=== PATIENT | male | born 1960 | race Hispanic/Latino ===

== ENCOUNTER 2018-03-02 20:23 | Observation (INO) | payer SELFPAY ==
[~2018-03-02] VITALS: Ht 175.3 cm; Wt 56.0 kg
--- NOTE | 2018-03-02 20:40 | NUR ---
PT. TO ROOM 6 WITH BEING RIBBER ON THE SIDE OF THE ROAD BY EMS. PT. IS LUX[place]ISH SPEAKING ONLY. UNABLE TO OBTAIN BIRTHDATE OR ADRESS FOR PT. PT. IS UNKEPT.
--- NOTE | 2018-03-02 20:45 | NUR ---
STAFF CANNOT VERIFY ANY INFORMATION FROM PT. PT UNABLE TO GIVE BIRTHDATE, WHERE HE LIVES, WHAT IS PAST MEDICAL HX IS, HE SAYS HE DOESNT KNOW WHERE HE IS AT AT THIS TIME. LANGUAGE BARRIER APPEARS TO BE PART OF PROBLEM, BUT WITH AN DUMB WAITER OPERATOR WAS ABLE TO ASCERTAIN, PT HAS ALTERED MENTAL STATUS, UNKNOWN IF THAT IS NORMAL STATE OR SOMETHING NEW.
[2018-03-02 21:28] LABS: HEMATOCRIT 39.5 % (39.0-50.0); HEMOGLOBIN 13.3 g/dl (14.0-18.0); IMMATURE GRANULOCYTES 0.9 % (0.0-5.0); MEAN CELL VOLUME 94.5 fL CALC (80.0-100.0); MEAN CORPUSCULAR HGB 31.8 pG CALC (26.0-32.0); MEAN CORPUSCULAR HGB CONC 33.7 g/L CALC (32.0-36.0); NEUT# 7.5 thou/uL (1.82-7.42); RED BLOOD COUNT 4.18 mill/uL (4.70-6.10); RED CELL DISTRI WIDTH 14.2 % (11.5-15.5)
[2018-03-02 21:29] LABS: URINE BILIRUBIN - DIPSTICK NEGATIVE (NEGATIVE); URINE BLOOD DIPSTICK NEGATIVE (NEGATIVE); URINE COLOR YELLOW; URINE GLUCOSE - DIPSTICK NEGATIVE (NEGATIVE); URINE KETONE NEGATIVE (NEGATIVE); URINE LEUK ESTERASE NEGATIVE (NEGATIVE); URINE NITRITE - DIPSTICK NEGATIVE (Negative); URINE PROTEIN - DIPSTICK TRACE mg/dL (NEG-TRACE); URINE UROBILINOGEN - DIPSTICK 0.2 E.U./dL (0.2)
[2018-03-02 21:30] LABS: URINE CLARITY CLEAR
[2018-03-02 21:33] LABS: BARBITURATES NEGATIVE (NEGATIVE); COCAINE NEGATIVE (NEGATIVE); METHADONE NEGATIVE (NEGATIVE); OXCYCODONE NEGATIVE (NEGATIVE); TETRAHYDROCANNABIONOL NEGATIVE (NEGATIVE); TRICYLIC ANTIDEPRESSANTS NEGATIVE (NEGATIVE)
--- NOTE | 2018-03-02 21:35 | NUR ---
REGISTRATION FOUND ANOTHER ACCOUNT FROM OCTOBER OF THIS YEAR THAT COULD BE THIS PT, BUT PT UNABLE TO VERIFY BIRTHDAY SO UNABLE TO COMBINE ACCTS. AT THAT TIME THAT PT WAS ADMITTED AND WE HAVE DR. DOWNING NOTES THAT PT IS HOMELESS , BUT ONCE AGAIN UNABLE TO VERIFY THAT THIS PT IS THE SAME ONE.
[2018-03-02 21:40] LABS: ALBUMIN 4.6 g/dL (3.2-5.0); ALKALINE PHOSPHATASE 122 u/l (38-126); ANION GAP 28 (6-22 (CALC)); BILIRUBIN, TOTAL 0.6 mg/dL (0.0-1.4); BUN 15 mg/dL (9-20); BUN/CREATININE RATIO 13 (12-20 (CALC)); CARBON DIOXIDE 16 mmol/l (22-30); CHLORIDE 100 mmol/l (95-108); CREATININE 1.2 mg/dL (0.7-1.3); GFR > 60 ML/MIN (>=60 (CALC)); GFR FOR AFR.AMER. > 60 ML/MIN (>=60 (CALC)); POTASSIUM 3.8 mmol/l (3.5-5.1); SGOT/AST 22 u/l (17-59); SODIUM 141 mmol/l (137-146); TOTAL PROTEIN 7.8 g/dL (6.3-8.2)
[2018-03-02 21:45] LABS: PROTHROMBIN TIME 10.7 SECONDS (9.0-12.5)
--- NOTE | 2018-03-02 21:45 | NUR ---
TOOK PICTURE OF PT, AND PLACED ABOVE BED, WILL SCAN INTO HIS MEDICAL HISTORY PER INTERVENTION SPECIALIST
--- NOTE | 2018-03-02 21:50 | NUR ---
PT. RESTING ON STRETCHER. PT. VOIDED ON FLOOR. HOUSEKEEPING IN TO MOP FLOOR, NO ACUTE DISTRESS NOTED.
[2018-03-02 21:54] LABS: MYOGLOBIN 540 ng/mL (0 - 121)
--- NOTE | 2018-03-02 22:27 | NUR ---
PT. VOIDED ON FLOOR AGAIN, URINAL AT PT. SIDE.
--- NOTE | 2018-03-02 23:28 | NUR ---
IVF STARTED PER MD ORDER.
[2018-03-03] VITALS (7 sets, daily range): BP systolic 102–150; BP diastolic 71–81
--- NOTE | 2018-03-03 01:18 | NUR ---
Admission Note Report Given to: STANLEY ARTHUR Transported by: Wheelchair X Stretcher Transported with: X Nurse Transporter X Patent IV O2 X Contact Lens Blocker
--- NOTE | 2018-03-03 01:45 | NUR ---
PT. TAKEN TO MS VIA STRETCHER. NO C/O.
--- NOTE | 2018-03-03 02:00 | NUR ---
PT ARRIVED TO UNIT VIA STRETCHER WITH ER STAFF. AMBULATED WITH WALKER TO SHOWER AND PT ASSISTED WITH FULL SHOWER AND ORAL HYGEINE. TELE REPLACED AND PT AMBULATED TO BED. EMS SITE APPEARS HEALTHY TO LEFT HAND. PT IS KITTITIAN SPEAKING ONLY AND IS ALERT WITH CONFUSION. MEGHA RYAN ASSISTED WITH TRANSLATION; PT IS ALERT TO NAME ONLY AND UNABLE TO STATE , PLACE, OR TIME. DENIES PAIN. RESPIRATIONS EVEN AND UNLABORED ON ROOM AIR; LUNGS ARE CLEAR. ASSESSMENT COMPLETED. ABLE TO MAKE NEEDS KNOWN, SAT ON EDGE OF BED TO EAT A LARGE SNACK AND REQUESTING PANTS. ORIENTED TO ROOM AND CALL LIGHT SYSTEM. SAFETY MEASURES IN PLACE INCLUDING BED ALARM. SAFETY MEASURES IN PLACE. CALL LIGHT WITHIN REACH.
--- NOTE | 2018-03-03 03:35 | NUR ---
ROCEPHIN INFUSING AT THIS TIME AND THIRD FLUIDS BOLUS INFUSING. PT RESTING WITH EYES CLOSED. NO REQUESTS AT THIS TIME.
--- NOTE | 2018-03-03 08:05 | NUR ---
ASSESSMENT DONE. TELE IN PLACE. RESPS EVEN AND UNLABORED. NS 125ML/HR INFUSING WELL. PT IS A&O X1 TO PERSON AND AGE ONLY. PT DENIES PAIN AT THIS TIME. SAFETY PRECAUTIONS REINFORCED AND CALL LIGHT IN REACH. BED ALRAM IN PLACE FOR SAFETY.
--- NOTE | 2018-03-03 12:00 | NUR ---
PT IS SITTING IN THE SIDE OF THE BED EATING HIS LUNCH WITH NO S/S OF DISTRESS NOTED. PT DENIES NEEDS AT THIS TIME. BED ALARM IN PLACE.
--- NOTE | 2018-03-03 16:00 | NUR ---
PT IS RESTING IN BED WITH NO S/S OF DISTRESS NOTED. PT DENEIS NEEDS AT THIS TIME. CALL LIGHT IN REACH. BED ALARM IN PLACE.
--- NOTE | 2018-03-03 19:00 | NUR ---
BEDSIDE REPORT RECEIVED FROM MEGHA FARIAS. PT RESTING IN BED SEMI FOWLERS; ALERT WITH CONFUSION; ICELANDIC SPEAKING ONLY. DENIES PAIN CURRENTLY. RESPIRATIONS EVEN AND UNLABORED ON ROOM AIR. IV FLUIDS INFUSING WITHOUT DIFFICULTY; IV SITE APPEARS HEALTHY. TELE ON. SAFETY MEASURES IN PLACE INCLUDING BED ALARM. CALL LIGHT WITHIN REACH.
--- NOTE | 2018-03-04 00:07 | NUR ---
PT RESTING IN BED QUIETLY WITH EYES OPEN. NEURO CHECK WNL. PT AMBULATES WITH WALKER. NO REQUESTS OR CONCERNS AT THIS TIME. SAFETY MEASURES IN PLACE INCLUDING BED ALARM. CALL LIGHT WITHIN REACH.
[2018-03-04 04:00] VITALS: BP 138/80
--- NOTE | 2018-03-04 04:31 | NUR ---
PT RESTING IN BED WITH EYES CLOSED. NURSING SPECIALIST FREQUENTLY REPORTING THAT PT IS OFF TELE. ELECTRODES, LEADS, AND MONITOR BOX ALL REPLACED AND STILL WITH DIFFICULTY READING. ELECTRODES ARE INTACT. VS STABLE. PT VOIDING CLEAR YELLOW URINE IN BEDSIDE URINAL IN SMALL FREQUENT AMOUNTS. NO ACUTE CHANGES IN CONDITION THROUGHOUT THE NIGHT. REMAINS ONLY ORIENTED TO SELF. SAFETY MEASURES IN PLACE. CALL LIGHT WITHIN REACH.
[2018-03-04 05:27] LABS: IMMATURE GRANULOCYTES 0.3 % (0.0-5.0); MEAN CELL VOLUME 93.3 fL CALC (80.0-100.0); MEAN CORPUSCULAR HGB 32.2 pG CALC (26.0-32.0); MEAN CORPUSCULAR HGB CONC 34.5 g/L CALC (32.0-36.0); NEUT# 3.49 thou/uL (1.82-7.42); RED BLOOD COUNT 3.45 mill/uL (4.70-6.10); RED CELL DISTRI WIDTH 14.5 % (11.5-15.5)
[2018-03-04 05:28] LABS: HEMATOCRIT 32.2 % (39.0-50.0); HEMOGLOBIN 11.1 g/dl (14.0-18.0)
[2018-03-04 05:49] LABS: ALKALINE PHOSPHATASE 76 u/l (38-126); BILIRUBIN, TOTAL 0.4 mg/dL (0.0-1.4); BUN 12 mg/dL (9-20); BUN/CREATININE RATIO 17 (12-20 (CALC)); CHLORIDE 107 mmol/l (95-108); CREATININE 0.7 mg/dL (0.7-1.3); GFR > 60 ML/MIN (>=60 (CALC)); GFR FOR AFR.AMER. > 60 ML/MIN (>=60 (CALC)); MAGNESIUM 1.7 mg/dL (1.6-2.3); POTASSIUM 3.4 mmol/l (3.5-5.1); SGOT/AST 23 u/l (17-59); SODIUM 139 mmol/l (137-146)
[2018-03-04 06:02] LABS: ALBUMIN 2.8 g/dL (3.2-5.0); ANION GAP 8 (6-22 (CALC)); CARBON DIOXIDE 27 mmol/l (22-30); TOTAL PROTEIN 5.5 g/dL (6.3-8.2)
--- NOTE | 2018-03-04 07:15 | NUR ---
PT REPORT RECIEVED FROM JERSON PARNELL. PT APPEARS TO BE SLEEPING. NO S/S OF DISTRESS. WILL CONTINUE TO MONITOR
[2018-03-04 08:32] VITALS: BP 111/62
--- NOTE | 2018-03-04 08:32 | NUR ---
PT ASSESSMENT COMPLETE. PT ALERT TO SELF. SPEECH IS CLEAR. RESP EVEN AND UNLABORED. LUNG SOUNDS CLEAR. TELE IN PLACE. PT STATES LAST BM 03/03/18. ABDOMEN ROUND,SOFT. BOWEL SOUNDS HYPERACTIVE X4. STRONG RADIAL AND PEDAL PULSES. #20 LAC NS @125. SITE APPEARS HEALTHY. SKIN INTACT. PT DENIES ANY PAIN OR NEEDS AT THIS TIME. PLAN OF CARE DISCUSSED. SAFETY PRECAUTIONS IN PLACE. BED ALARM ON. WILL CONTINUE TO MONITOR.
[2018-03-04 11:15] VITALS: BP 106/47
--- NOTE | 2018-03-04 11:29 | NUR ---
IV FOUND REMOVED AND INFUSING INTO URINAL AT BEDSIDE. TELE UNIT REMOVED. PT REFUSING NEW IVS AND APPLICATION OF TELE. WILL NOTIFY DR. MARISCAL. PT AMBULATING IN ROOM W/ WALKER. STEADY GAIT.
--- NOTE | 2018-03-04 12:25 | NUR ---
PT SITTING ON SIDE OF BED EATING LUNCH. NO S/S OF DISTRESS. PT DENIES ANY NEEDS. CALL LIGHT IN REACH. WILL CONTINUE TO MONITOR
--- NOTE | 2018-03-04 12:38 | NUR ---
DR. MARISCAL IN TO SEE PT. PT CONSENTS TO NEW IV INSERTION
[2018-03-04 16:00] VITALS: BP 139/80
--- NOTE | 2018-03-04 16:28 | NUR ---
PT RESTING IN BED. PT STATES MINIMAL PAIN TO IV AREA. IV ASSESSED. SITE APPEARS HEALTHY. PT DENIES ANY FURTHER NEEDS. URINAL AT BEDSISDE. CALL LIGHT IN REACH. WILL CONTINUE TO MONITOR.
--- NOTE | 2018-03-04 18:32 | NUR ---
PT. FOUND IN BATHROOM. WILIAM IV HANGING FROM IV POLE AT BEDSIDE. BLOOD CLEANED FROM FLOOR. PT REFUSING NEW IVS AT THIS TIME.
[2018-03-04 20:11] VITALS: BP 138/79
--- NOTE | 2018-03-04 20:45 | NUR ---
PHYSICIAN CALLED, ORDERS RECEIVED TO DC TELEMETRY DUE TO PT REFUSAL. PT REFUSING STOCK BLENDER OR IV AND CONTINUES TO REMOVE BOTH.
--- NOTE | 2018-03-05 00:38 | NUR ---
PT APPEARS TO BE SLEEPING AT THIS TIME. CALL LIGHT W/IN REACH.
[2018-03-05 04:04] VITALS: BP 163/87
--- NOTE | 2018-03-05 04:30 | NUR ---
MANUAL B/P ASSESSED ON PT. HE WAS AWAKE, BUT CALM AND IN BED W/LIGHTS OUT. NO S/S OF DISTRESS NOTED AT THIS TIME. CALL LIGHT W/IN REACH, BED ALARM ON.
[2018-03-05 04:39] VITALS: BP 150/83
--- NOTE | 2018-03-05 07:02 | NUR ---
REPORT RECEIVED BY DUDLEY. PT IS SLEEPING IN BED WITH NO S/S OF DISTRESS NOTED. CALL LIGHT IN REACH. BED ALARM IN PLACE FOR SAFETY.
[2018-03-05 07:41] VITALS: BP 136/76
--- NOTE | 2018-03-05 08:19 | NUR ---
ASSESSMENT DONE. RESPS EVEN AND UNLABORED PT IS A&O X1 PERSON AND AGE. PT STATED PAIN IN LEFT HIP 07/25. PT REFUSED PAIN MEDICATION AT THIS TIME. NO IV SITE AT THIS TIME DUE TO PT IS REFUSING. OSIRIS MATTHEW AWARE. SAFETY PRECAUTIONS REINFORCED AND CALL LIGHT IN REACH. BED ALARM IN PLACE.
--- NOTE | 2018-03-05 12:05 | NUR ---
PT IS RESTING IN BED WITH NO S/S OF DISTRESS NOTED. PT DENIES NEEDS AT THIS TIME. BED ALARM IN PLACE AND CALL LIGHT IN REACH.
[2018-03-05 12:27] VITALS: BP 133/74
[2018-03-05 16:00] VITALS: BP 135/76
[2018-03-05] MEDS ORDERED: DOXYCYCL HYC100 MG PO (16:41)
--- NOTE | 2018-03-05 18:11 | NUR ---
Discharge instructions given. Patient verbalizes understanding of same. Discharged in stable condition via Taxi to *Other with staff. All belongings sent with pt.
--- NOTE | 2018-03-05 19:11 | NUR ---
REPORT GIVEN TO MONA FROM [facility].
== END 2018-03-05 18:45 | disposition home or self-care (01) | DRG 193 ==
LOC: ED 20:23 → ED-I 20:50 → ED 20:50 → ED-I 03-03 00:10 → ED 03-03 00:25 → MS2 03-03 00:26
PROVIDERS: Emergency Medicine; ADMIT Internal Medicine Nephrology; ATTEND Internal Medicine Nephrology
DX: J18.9 Pneumonia, unspecified organism (principal); G93.41 Metabolic encephalopathy; E43 Unspecified severe protein-calorie malnutrition; Z68.1 Body mass index [BMI] 19.9 or less, adult; I49.3 Ventricular premature depolarization; I49.1 Atrial premature depolarization; F10.10 Alcohol abuse, uncomplicated; Y90.0 Blood alcohol level of less than 20 mg/100 ml; Z96.642 Presence of left artificial hip joint; Z59.0 Homelessness
CPT/HCPCS: G0378; J1650

== ENCOUNTER 2018-03-08 11:22 | Emergency (ER) | payer SELFPAY ==
[~2018-03-08] VITALS: Ht 175.3 cm; Wt 72.7 kg
[~2018-03-08 11:22] MED LIST: DOXYCYCL HYC100 MG PO
[2018-03-08 13:04] VITALS: BP 130/92
== END 2018-03-08 13:29 | disposition home or self-care (01) | DRG 605 ==
LOC: ED 11:22
DX: S40.012A Contusion of left shoulder, initial encounter (principal); S70.02XA Contusion of left hip, initial encounter; W01.0XXA Fall on same level from slipping, tripping and stumbling without subsequent striking against object, initial encounter; Z96.642 Presence of left artificial hip joint; Z59.0 Homelessness